=== PATIENT | male | born 1970 | race Two or more races ===

== ENCOUNTER 2019-02-28 05:19 | Outpatient (CLI) | payer OTHER ==
[2019-02-28 05:54] LABS: ALBUMIN 3.5 g/dL (3.4-5.0); ANION GAP 6 mmol/L (5-15); CALCIUM 8.7 mg/dL (8.5-10.1); CHLORIDE 105 mmol/L (98-107)
[2019-02-28 06:05] LABS: ALANINE AMINOTRANSFERASE 30 U/L (12-78); ALKALINE PHOSPHATASE 131 U/L (45-117); CHOL/HDL RATIO 6.2; CHOLESTEROL, TOTAL 168 mg/dL (140-239); CREATININE 0.94 mg/dL (0.7-1.3); HDL CHOL % 16 % (26-37); HDL CHOLESTEROL (DIRECT) 27 mg/dL (40-60); LDL CHOLESTEROL,CALCULATED 82 mg/dL (54-169); TOTAL PROTEIN 6.9 g/dL (6.4-8.2); TRIGLYCERIDES 297 mg/dL (50-200); VLDL CHOLESTEROL 59 mg/dL (0-25)
== END 2019-02-28 23:59 | disposition home or self-care (01) ==
LOC: LAB 05:19
PROVIDERS: ATTEND Family Medicine
DX: E11.65 Type 2 diabetes mellitus with hyperglycemia (principal)
CPT/HCPCS: 36415; 80053; 80061; 82043; 82570; 84443

== ENCOUNTER 2020-03-02 05:13 | Outpatient (CLI) | payer OTHER ==
[2020-03-02 05:46] LABS: ALANINE AMINOTRANSFERASE 37 U/L (12-78); ALBUMIN 3.8 g/dL (3.4-5.0); ANION GAP 10 mmol/L (5-15); CHLORIDE 109 mmol/L (98-107); CHOLESTEROL, TOTAL 102 mg/dL (140-239); CREATININE 0.84 mg/dL (0.7-1.3); TRIGLYCERIDES 224 mg/dL (50-200); VLDL CHOLESTEROL 45 mg/dL (0-25)
[2020-03-02 05:48] LABS: ALKALINE PHOSPHATASE 101 U/L (45-117); BILIRUBIN,TOTAL 1.4 mg/dL (0.2-1.0); CHOL/HDL RATIO 2.9; HDL CHOL % 34 % (26-37); HDL CHOLESTEROL (DIRECT) 35 mg/dL (40-60); LDL CHOLESTEROL,CALCULATED 22 mg/dL (54-169); LDL/HDL RATIO 0.6 (0.5-3.0); TOTAL PROTEIN 7.5 g/dL (6.4-8.2)
== END 2020-03-02 23:59 | disposition home or self-care (01) ==
LOC: LAB 05:13
PROVIDERS: ATTEND Family Medicine
DX: E11.65 Type 2 diabetes mellitus with hyperglycemia (principal); E78.49 Other hyperlipidemia
CPT/HCPCS: 36415; 80053; 80061; 82043